=== PATIENT | female | born 1995 | race African-American/Black ===

== ENCOUNTER 2016-07-31 10:51 | Emergency (ER) | payer SELFPAY ==
[2016-07-31 10:54] VITALS: BP 132/94
[2016-07-31] MEDS ORDERED: NS 1000 ML 1,000 ML IV ONE ×2 (10:59→14:39)
[2016-07-31] MEDS ORDERED: ZOFRAN INJ 4 MG VIAL IVP ONE (10:59)
--- NOTE | 2016-07-31 10:59 | DR.GENAD ---
HPI - PCP Primary Care Physician: andreea ARAUZ Comment HPI Comment: Patient reports that she has been with nausea, vomiting, diarrhea since yesterday.Not sure how many- Denies having eaten anything strange or left over - Complaint/Symptoms Chief Complaint Doctors Comments: Vomiting/diarrhea Chief Complaint:: patient stated she has been vomiting since last night - Nurses notes reviewed Nurses Notes Review: Yes - Source History Provided: Patient - Mode of Arrival Mode of Arrival: Ambulatory - Timing Onset of Chief Complaint: 07/30/16 PMH - PMH Past Medical History: Yes Past Medical History: Asthma Past Surgical History: No - Family History History of Family Medical Conditions: Yes Family Medical History: Diabetes Mellitus, Cancer, [place], Coronary Artery Disease, Heart Failure, Sudden Cardiac , Hypertension - Social History Does patient currently use any type of tobacco product: No Have you used tobacco products in the last 12 months: No Type of Tobacco Use: None Does any household member use tobacco: Yes Alcohol Use: None Do you use any recreational Drugs:: No Lives With: Family Lives Where: Home - infectious screening In the last 2 months have you had wt loss of >10#?: NO Have you had fever, night sweats or hemotysis?: No Have you traveled outside the country in the last 6 months?: No Isolation: Standard ROS - Review of Systems Constitutional: No Symptoms Reported Eyes: No Symptoms Reported ENTM: No Symptoms Reported Respiratoy: No Symptoms Reported Cardiovascular: No Symptoms Reported Gastrointestinal/Abdominal: Diarrhea, Nausea, Vomiting Genitourinary: No Symptoms Reported Neurological: No Symptoms Reported Musculoskeletal: No Symptoms Reported Integumentary: No Symptoms Reported Hematologic/Lymphatic: No Symptoms Reported Endocrine: No Symptoms Reported Psychiatric: No Symptoms Reported All Other Systems: Reviewed and Negative PE - Vital Signs Vitals: Temperature 97.9 F Pulse Rate 129 Respiratory Rate 16 Blood Pressure 132/94 O2 Sat by Pulse Oximetry 100 - General Limitations: No Limitations General Appearance: Alert, Anxious - Head Head Exam: Normal Inspection - Eyes Eye exam: Normal Appearance, PERRL, EOMI - ENT ENT Exam: Normal Exam, Normal Oropharynx External Ear Exam: Normal External Inspection TM/Canal Exam: Bilateral Normal Nose Exam: Normal Nose Exam Mouth Exam: Normal Inspection Throat Exam: Normal Inspection - Neck Neck Exam: Normal Inspection, Full ROM - Chest Chest Inspection: Normal Inspection - Respiratory Respiratory Exam: Normal Lung Sounds Bilat Respiratory Exam: Bilateral Clear to Auscultation - Cardiovascular Cardiovascular Exam: Regular Rate, Normal Rhythm - Abdominal Exam Abdominal Exam: Normal Inspection, Normal Bowel Sounds, Soft, Tenderness Abdominal Tenderness: Diffuse - Extremities Extremities Exam: Normal Inspection - Back Back Exam: Normal Inspection, Full ROM - Neurologic Neurological Exam: Alert, Oriented X3, CN II-XII Intact - Psychiatric Psychiatric Exam: Normal Affect, Normal Mood - Skin Skin Exam: Warm, Dry, Intact, Normal Color Course - Reevaluation 1st: Improved - Education/Counseling Education/Counseling: Patient Educated On: Treatment, Diagnosis, Needs for Follow Up ROR - Labs Reviewed Laboratory Results Reviewed?: Yes Result Diagrams: 07/31/16 11:00 07/31/16 11:00 Laboratory: WBC 13.7 X10^3/uL (3.6-10.0) H 07/31/16 11:00 RBC 5.17 X10^6/uL (3.5-5.4) 07/31/16 11:00 Hgb 13.7 g/dL (12.0-16.0) 07/31/16 11:00 Hct 40.9 % (36.0-47.0) 07/31/16 11:00 MCV 79.1 fL (80.0-100.0) L 07/31/16 11:00 MCH 26.4 pg (27.0-34.0) L 07/31/16 11:00 MCHC 33.4 g/dL (33.0-35.0) 07/31/16 11:00 RDW 13.9 % (11.6-16.5) 07/31/16 11:00 Plt Count 317 X10^3/uL (150.0-450.0) 07/31/16 11:00 MPV 9.3 fL (7.4-11.0) 07/31/16 11:00 Neut % 84.5 % (42.0-75.0) H 07/31/16 11:00 Lymph % 9.9 % (21.0-51.0) L 07/31/16 11:00 Whiteside % 4.1 % (0.0-13.0) 07/31/16 11:00 Eos % 1.0 % (0.9-2.9) 07/31/16 11:00 Baso % 0.5 % (0.2-1.0) 07/31/16 11:00 Neut # 11.6 x10^3/uL (2.2-4.8) H 07/31/16 11:00 Lymph # 1.4 X10^3/uL (1.3-2.9) 07/31/16 11:00 Whiteside # 0.6 x10^3/uL (0.3-0.8) 07/31/16 11:00 Eos # 0.1 x10^3/uL (0.0-0.2) 07/31/16 11:00 Baso # 0.1 X10^3/uL (0.0-0.1) 07/31/16 11:00 Absolute Nucleated RBC 0.0 /100WBC 07/31/16 11:00 Sodium 142 mmol/L (136-145) 07/31/16 11:00 Corrected Sodium TNP 07/31/16 11:00 Potassium 3.9 mmol/L (3.5-5.1) 07/31/16 11:00 Chloride 104 mmol/L (98-107) 07/31/16 11:00 Carbon Dioxide 26.5 mmol/L (21-32) 07/31/16 11:00 BUN 15 mg/dL (7-18) 07/31/16 11:00 Creatinine 1.07 mg/dL (0.55-1.02) H 07/31/16 11:00 Est GFR (MDRD) Af Amer > 60 (>60) 07/31/16 11:00 Est GFR (MDRD) Non-Af > 60 (>60) 07/31/16 11:00 Glucose 108 mg/dL (65-99) H 07/31/16 11:00 Calcium 9.2 mg/dL (8.5-10.1) 07/31/16 11:00 Corrected Calcium TNP 07/31/16 11:00 Total Bilirubin 0.30 mg/dL (0.2-1.0) 07/31/16 11:00 AST 25 Units/L (15-37) 07/31/16 11:00 ALT 28 Units/L (12-78) 07/31/16 11:00 Alkaline Phosphatase 74 Units/L (46-116) 07/31/16 11:00 Total Protein 8.5 g/dL (6.4-8.2) H 07/31/16 11:00 Albumin 4.2 g/dL (3.4-5.0) 07/31/16 11:00 Globulin 4.3 g/dL (2.5-4.5) 07/31/16 11:00 Albumin/Globulin Ratio 1.0 Ratio (1.1-2.1) L 07/31/16 11:00 Amylase 76 Units/L (25-115) 07/31/16 11:00 Lipase 132 Units/L (73-393) 07/31/16 11:00 HCG, Qual Negative <10 mIU/mL 07/31/16 11:00 Reviewed - XRAY XRAY Interpreted by: Radiologist XRAY Findings: No obstruction - Diagnosis Discharge Problem: Gastroenteritis, acute Nausea & vomiting Qualifiers: Vomiting type: unspecified Vomiting Intractability: non-intractable Qualified Code(s): R11.2 - Nausea with vomiting, unspecified Diarrhea Qualifiers: Diarrhea type: unspecified type Qualified Code(s): R19.7 - Diarrhea, unspecified Abdominal pain Qualifiers: Abdominal location: generalized Qualified Code(s): R10.84 - Generalized abdominal pain Elevated WBCs Qualifiers: Leukocytosis type: other Qualified Code(s): D72.828 - Other elevated white blood cell count - Discharge Plan Disposition: 01 HOME, SELF-CARE Condition: Stable Prescriptions: Cefdinir 300 mg PO BID #20 cap - Follow ups/Referrals Follow ups/Referrals: NFD,None [Primary Care Provider] - 3 days - Instructions Instructions: Nausea, Adult, Diarrhea, Adult, [id number], Abdominal Pain, Adult, [id number] Additional Instructions: Patient advised to continue clear liquid diet then soft to solid. Follow up with PCP.
[2016-07-31] MEDS ORDERED: DEMEROL INJ IVP ONE (11:00)
[2016-07-31] MEDS ORDERED: NS 1000 ML 1,000 ML ONE ×2 (11:03→14:44)
[2016-07-31] MEDS ORDERED: ZOFRAN INJ 4 MG VIAL ONE (11:03)
[2016-07-31] MEDS ORDERED: DEMEROL INJ ONE (11:14)
[2016-07-31 11:23] LABS: ALANINE AMINOTRANSFERASE 28 Units/L (12-78); ALBUMIN 4.2 g/dL (3.4-5.0); ALKALINE PHOSPHATASE 74 Units/L (46-116); AMYLASE 76 Units/L (25-115); ASPARTATE AMINO TRANSFERASE 25 Units/L (15-37); BLOOD UREA NITROGEN 15 mg/dL (7-18); CALCIUM 9.2 mg/dL (8.5-10.1); CARBON DIOXIDE 26.5 mmol/L (21-32); CHLORIDE 104 mmol/L (98-107); CREATININE 1.07 mg/dL (0.55-1.02); GLUCOSE 108 mg/dL (65-99); LIPASE 132 Units/L (73-393); SODIUM 142 mmol/L (136-145); TOTAL PROTEIN 8.5 g/dL (6.4-8.2); eGFR BLACK RACES > 60 (>60); eGFR NON BLACK RACES > 60 (>60)
[2016-07-31 11:24] LABS: BASOPHILS # (AUTO) 0.1 X10^3/uL (0.0-0.1); BASOPHILS % (AUTO) 0.5 % (0.2-1.0); EOSINOPHILS # (AUTO) 0.1 x10^3/uL (0.0-0.2); HEMATOCRIT 40.9 % (36.0-47.0); HEMOGLOBIN 13.7 g/dL (12.0-16.0); LYMPHOCYTES # (AUTO) 1.4 X10^3/uL (1.3-2.9); LYMPHOCYTES % (AUTO) 9.9 % (21.0-51.0); MEAN CORPUSCULAR HEMOGLOBIN 26.4 pg (27.0-34.0); MEAN CORPUSCULAR HGB CONC 33.4 g/dL (33.0-35.0); MEAN CORPUSCULAR VOLUME 79.1 fL (80.0-100.0); MEAN PLATELET VOLUME 9.3 fL (7.4-11.0); MONOCYTES # (AUTO) 0.6 x10^3/uL (0.3-0.8); MONOCYTES % (AUTO) 4.1 % (0.0-13.0); NEUTROPHILS # (AUTO) 11.6 x10^3/uL (2.2-4.8); NEUTROPHILS % (AUTO) 84.5 % (42.0-75.0); PLATELET COUNT 317 X10^3/uL (150.0-450.0); RED BLOOD COUNT 5.17 X10^6/uL (3.5-5.4); RED CELL DISTRIBUTION WIDTH 13.9 % (11.6-16.5); WHITE BLOOD COUNT 13.7 X10^3/uL (3.6-10.0)
[2016-07-31 11:50] LABS: SERUM PREGNANCY TEST, QUAL NEGATIVE <10 mIU/mL
--- NOTE | 2016-07-31 12:51 | RAD ---
HISTORY: Abdominal pain, vomiting, diarrhea, symptoms since last night Study: Acute abdominal series Comparison: No priors Findings: The trachea is midline. The cardiac silhouette is unremarkable. The lungs are clear without focal infiltrate or effusion. The bony thorax is unremarkable. Flat plate and upright evaluation of the abdomen demonstrates a 9 centimeter rectal fecal impaction. No bowel obstruction or perforation is seen. There is no evidence of free intraperitoneal air or fl uid. No pathological soft tissue mass or calcification can be observed. The bony structures are gr ossly intact. IMPRESSION: 1. No acute cardiopulmonary disease. 2. 9 centimeter rectal fecal impaction. No evidence of bowel obstruction or perforation is seen. Reported By:
[2016-07-31] MEDS ORDERED: PHENERGAN INJ 25 MG IVP ONE (14:39)
[2016-07-31] MEDS ORDERED: PHENERGAN INJ 25 MG ONE (14:49)
== END 2016-07-31 15:55 | disposition home or self-care (01) ==
LOC: ER 10:51
DX: K52.89 Other specified noninfective gastroenteritis and colitis (principal); R11.2 Nausea with vomiting, unspecified; R19.7 Diarrhea, unspecified; R10.84 Generalized abdominal pain; D72.828 Other elevated white blood cell count
CPT/HCPCS: 36415; 74022; 80053; 82150; 83690; 84703; 85025; 96365; 96367; 96374; 96375; 99283; A4222; J2175; J2405; J2550

== ENCOUNTER 2016-10-25 12:51 | Emergency (ER) | payer SELFPAY ==
[2016-10-25 12:55] VITALS: BP 126/87
--- NOTE | 2016-10-25 15:55 | DR.GENAD ---
HPI - PCP Primary Care Physician: nfd - HPI Comment HPI Comment: WAS SEEN AND TREATED IN [facility] IN [place]. STILL NOT BETTER. GETTING WORSE. - Complaint/Symptoms Chief Complaint Doctors Comments: NAUSEA, VOMITING, BODY ACHES AND HEADACHE FOR 5 TO 6 DAYS. Chief Complaint:: pt states she was seen in [facility] two days ago for vomiting, body aches, fever, headache. Pt states she is still sick - Nurses notes reviewed Nurses Notes Review: Yes - Source History Provided: Patient - Mode of Arrival Mode of Arrival: Ambulatory - Timing Onset of Chief Complaint: 10/20/16 Came on: Suddenly - Duration Duration: Constant Duration: Days - Severity Severity: Moderate PMH - PMH Past Medical History: Yes Past Medical History: Anemia, Asthma Past Surgical History: No - Family History History of Family Medical Conditions: Yes Family Medical History: Diabetes Mellitus, Cancer, [place], Coronary Artery Disease, Heart Failure, Sudden Cardiac , Hypertension - Social History Does patient currently use any type of tobacco product: Yes Have you used tobacco products in the last 12 months: Yes Type of Tobacco Use: Cigarettes Does any household member use tobacco: No Alcohol Use: None Do you use any recreational Drugs:: No Lives With: Spouse Lives Where: Home - infectious screening In the last 2 months have you had wt loss of >10#?: NO Have you had fever, night sweats or hemotysis?: No Have you traveled outside the country in the last 6 months?: No Isolation: Standard ROS - Review of Systems Constitutional: Weakness, Fatigue. negative: Chills, Diaphoresis, Fever Eyes: No Symptoms Reported. negative: Eye Pain, Discharge ENTM: No Symptoms Reported, Nose Congestion. negative: Ear Pain, Nose Discharge , Throat Pain Respiratoy: Non-Productive Cough. negative: Productive Cough, Short of Breath, Wheezing, Hemoptysis Cardiovascular: No Symptoms Reported. negative: Chest Pain Gastrointestinal/Abdominal: Abdominal Pain, Nausea, Vomiting Genitourinary: No Symptoms Reported. negative: Dysuria, Frequency, Hematuria Neurological: Headache, Weakness, Dizziness Musculoskeletal: Muscle Pain Integumentary: No Symptoms Reported Hematologic/Lymphatic: No Symptoms Reported Endocrine: No Symptoms Reported All Other Systems: Reviewed and Negative PE - Vital Signs Vitals: Temperature 98.3 F Pulse Rate 96 Respiratory Rate 18 Blood Pressure 126/87 O2 Sat by Pulse Oximetry 99 - General Limitations: No Limitations General Appearance: Alert - Head Head Exam: Normal Inspection - Eyes Eye exam: Normal Appearance, PERRL, EOMI. negative: Scleral Icterus, Conjunctival Injection - ENT ENT Exam: Normal External Ear Exam External Ear Exam: Normal External Inspection TM/Canal Exam: Bilateral Bulging Nose Exam: Normal Nose Exam Mouth Exam: Normal Inspection Throat Exam: Normal Inspection - Neck Neck Exam: Trachea Midline - Chest Chest Inspection: Symmetric Chest Wall Rise - Respiratory Respiratory Exam: Normal Lung Sounds Bilat Respiratory Exam: Bilateral Clear to Auscultation - Cardiovascular Cardiovascular Exam: Regular Rate, Normal Rhythm, Normal Heart Sounds - Abdominal Exam Abdominal Exam: Normal Bowel Sounds, Soft, Tenderness Abdominal Tenderness: Diffuse, Moderate - Extremities Extremities Exam: Normal Inspection - Back Back Exam: Normal Inspection - Neurologic Neurological Exam: Alert, Oriented X3 - Psychiatric Psychiatric Exam: Anxious - Skin Skin Exam: Normal Color MDM - Differential Diagnosis Differential Diagnosis: NAUSEA/VOMITING, BOWEL OBST., SINUSITIS. SINUS HEADACHE Course - Treatment Treatment: SEE REPORT. - Education/Counseling Education/Counseling: Patient, Education Educated On: Diagnosis, Needs for Follow Up ROR - Labs Reviewed Laboratory Results Reviewed?: Yes Result Diagrams: 10/25/16 16:00 10/25/16 16:00 Laboratory: WBC 4.3 X10^3/uL (3.6-10.0) 10/25/16 16:00 RBC 4.41 X10^6/uL (3.5-5.4) 10/25/16 16:00 Hgb 11.7 g/dL (12.0-16.0) L 10/25/16 16:00 Hct 34.4 % (36.0-47.0) L 10/25/16 16:00 MCV 77.9 fL (80.0-100.0) L 10/25/16 16:00 MCH 26.6 pg (27.0-34.0) L 10/25/16 16:00 MCHC 34.2 g/dL (33.0-35.0) 10/25/16 16:00 RDW 14.2 % (11.6-16.5) 10/25/16 16:00 Plt Count 209 X10^3/uL (150.0-450.0) 10/25/16 16:00 MPV 8.8 fL (7.4-11.0) 10/25/16 16:00 Neut % 58.7 % (42.0-75.0) 10/25/16 16:00 Lymph % 29.2 % (21.0-51.0) 10/25/16 16:00 Payne % 11.2 % (0.0-13.0) 10/25/16 16:00 Eos % 0.1 % (0.9-2.9) L 10/25/16 16:00 Baso % 0.8 % (0.2-1.0) 10/25/16 16:00 Neut # 2.5 x10^3/uL (2.2-4.8) 10/25/16 16:00 Lymph # 1.2 X10^3/uL (1.3-2.9) L 10/25/16 16:00 Payne # 0.5 x10^3/uL (0.3-0.8) 10/25/16 16:00 Eos # 0.0 x10^3/uL (0.0-0.2) 10/25/16 16:00 Baso # 0.0 X10^3/uL (0.0-0.1) 10/25/16 16:00 Absolute Nucleated RBC 0.0 /100WBC 10/25/16 16:00 Sodium 137 mmol/L (136-145) 10/25/16 16:00 Corrected Sodium TNP 10/25/16 16:00 Potassium 3.6 mmol/L (3.5-5.1) 10/25/16 16:00 Chloride 103 mmol/L (98-107) 10/25/16 16:00 Carbon Dioxide 24.3 mmol/L (21-32) 10/25/16 16:00 BUN 9 mg/dL (7-18) 10/25/16 16:00 Creatinine 0.95 mg/dL (0.55-1.02) 10/25/16 16:00 Est GFR (MDRD) Af Amer > 60 (>60) 10/25/16 16:00 Est GFR (MDRD) Non-Af > 60 (>60) 10/25/16 16:00 Glucose 81 mg/dL (65-99) 10/25/16 16:00 Calcium 8.5 mg/dL (8.5-10.1) 10/25/16 16:00 Corrected Calcium 9.1 mg/dL (8.5-10.1) 10/25/16 16:00 Total Bilirubin 0.20 mg/dL (0.2-1.0) 10/25/16 16:00 AST 26 Units/L (15-37) 10/25/16 16:00 ALT 34 Units/L (12-78) 10/25/16 16:00 Alkaline Phosphatase 53 Units/L (46-116) 10/25/16 16:00 Total Protein 7.2 g/dL (6.4-8.2) 10/25/16 16:00 Albumin 3.3 g/dL (3.4-5.0) L 10/25/16 16:00 Globulin 3.9 g/dL (2.5-4.5) 10/25/16 16:00 Albumin/Globulin Ratio 0.8 Ratio (1.1-2.1) L 10/25/16 16:00 HCG, Qual Negative <10 mIU/mL 10/25/16 16:00 Specimen Type Clean catch urine 10/25/16 17:53 Urine Color Yellow (YELLOW) 10/25/16 17:53 Urine Appearance Clear (CLEAR) 10/25/16 17:53 Urine pH 6.5 (5.0 - 8.0) 10/25/16 17:53 Ur Specific Rough And Ready 1.010 (1.000-1.030) 10/25/16 17:53 Urine Protein 1+ (NEGATIVE) 10/25/16 17:53 Urine Glucose (UA) Negative (NEGATIVE) 10/25/16 17:53 Urine Ketones 3+ (NEGATIVE) 10/25/16 17:53 Urine Occult Blood Negative (NEGATIVE) 10/25/16 17:53 Urine Nitrite Negative (NEGATIVE) 10/25/16 17:53 Urine Bilirubin Negative (NEGATIVE) 10/25/16 17:53 Urine Urobilinogen Normal (NORMAL) 10/25/16 17:53 Ur Leukocyte Esterase Negative (NEGATIVE) 10/25/16 17:53 Urine RBC 0-3 /HPF (NEGATIVE) 10/25/16 17:53 Urine WBC 0-3 /HPF (NEGATIVE) 10/25/16 17:53 Ur Squamous Epith Cells Few /HPF (NEGATIVE) 10/25/16 17:53 Urine Bacteria Negative /HPF (NEGATIVE) 10/25/16 17:53 Urine Mucus Few /HPF (NEGATIVE) 10/25/16 17:53 Urine Trichomonas Few /HPF (NEGATIVE) 10/25/16 17:53 Ur Culture Indicated? No/not indicated 10/25/16 17:53 - XRAY XRAY Interpreted by: Radiologist XRAY Findings: REPORT DISCUSS WITH PATIENT. - Diagnosis Discharge Problem: Sinus headache Nausea & vomiting Qualifiers: Vomiting type: bilious vomiting Qualified Code(s): R11.14 - Bilious vomiting Sinusitis Qualifiers: Sinusitis location: unspecified location Chronicity: acute Recurrence: not specified as recurrent Qualified Code(s): J01.90 - Acute sinusitis, unspecified - Discharge Plan Disposition: HOME, SELF-CARE Condition: Stable Prescriptions: Amoxicillin [Amoxil 875 mg] 875 mg PO BID #20 tab Hiqarmgzhm-Izfdzkiayanep-Ibvja [Fioricet 50-300-40 mg] 1 cap PO Q8H PRN #15 cap PRN Reason: Migraine Headache Ondansetron HCl [Zofran Tab 4 mg] 4 mg PO Q8H PRN #12 tab PRN Reason: Nausea/Vomiting - Follow ups/Referrals Follow ups/Referrals: NFD,None [Primary Care Provider] - 3 days - Instructions Instructions: Sinus Headache, [id number], Sinus Headache, Nausea and Vomiting , Adult, Wuqh-wn-Zzzw Additional Instructions: RETURN TO ED IF WORSE.
[2016-10-25] MEDS ORDERED: ZOFRAN INJ 4 MG VIAL IVP ONE (15:56)
[2016-10-25] MEDS ORDERED: NS 1000 ML 1,000 ML IV ONE (15:56)
[2016-10-25] MEDS ORDERED: MORPHINE SULFATE INJ 4 MG IVP ONE (15:57)
[2016-10-25] MEDS ORDERED: NS 1000 ML 1,000 ML ONE (16:10)
[2016-10-25] MEDS ORDERED: ZOFRAN INJ 4 MG VIAL ONE (16:11)
[2016-10-25] MEDS ORDERED: MORPHINE SULFATE INJ 4 MG ONE (16:11)
[2016-10-25 16:16] LABS: BASOPHILS % (AUTO) 0.8 % (0.2-1.0); EOSINOPHILS % (AUTO) 0.1 % (0.9-2.9); HEMATOCRIT 34.4 % (36.0-47.0); HEMOGLOBIN 11.7 g/dL (12.0-16.0); LYMPHOCYTES # (AUTO) 1.2 X10^3/uL (1.3-2.9); LYMPHOCYTES % (AUTO) 29.2 % (21.0-51.0); MEAN CORPUSCULAR HEMOGLOBIN 26.6 pg (27.0-34.0); MEAN CORPUSCULAR HGB CONC 34.2 g/dL (33.0-35.0); MEAN CORPUSCULAR VOLUME 77.9 fL (80.0-100.0); MEAN PLATELET VOLUME 8.8 fL (7.4-11.0); MONOCYTES # (AUTO) 0.5 x10^3/uL (0.3-0.8); MONOCYTES % (AUTO) 11.2 % (0.0-13.0); NEUTROPHILS # (AUTO) 2.5 x10^3/uL (2.2-4.8); NEUTROPHILS % (AUTO) 58.7 % (42.0-75.0); PLATELET COUNT 209 X10^3/uL (150.0-450.0); RED BLOOD COUNT 4.41 X10^6/uL (3.5-5.4); RED CELL DISTRIBUTION WIDTH 14.2 % (11.6-16.5); WHITE BLOOD COUNT 4.3 X10^3/uL (3.6-10.0)
[2016-10-25 16:27] LABS: ALANINE AMINOTRANSFERASE 34 Units/L (12-78); ALBUMIN 3.3 g/dL (3.4-5.0); ALKALINE PHOSPHATASE 53 Units/L (46-116); ASPARTATE AMINO TRANSFERASE 26 Units/L (15-37); BLOOD UREA NITROGEN 9 mg/dL (7-18); CALCIUM 8.5 mg/dL (8.5-10.1); CARBON DIOXIDE 24.3 mmol/L (21-32); CHLORIDE 103 mmol/L (98-107); COR CA(FOR HYPOALB) 9.1 mg/dL (8.5-10.1); CREATININE 0.95 mg/dL (0.55-1.02); GLUCOSE 81 mg/dL (65-99); SODIUM 137 mmol/L (136-145); TOTAL PROTEIN 7.2 g/dL (6.4-8.2); eGFR BLACK RACES > 60 (>60); eGFR NON BLACK RACES > 60 (>60)
[2016-10-25 16:30] LABS: SERUM PREGNANCY TEST, QUAL NEGATIVE <10 mIU/mL
--- NOTE | 2016-10-25 17:22 | RAD ---
HISTORY: Abdominal pain, fever, headache, vomiting, malaise Study: Acute abdominal series Comparison: July 31, 2016 Findings: The trachea is midline. The cardiac silhouette is unremarkable. The lungs are clear without focal mass or consolidation. There is no effusion or pneumothorax. The bony thorax is grossly unremarkab le. Flat plate and upright evaluation of the abdomen demonstrates a nonspecific bowel gas pattern withou t pneumoperitoneum. There are a few mildly air distended loops of small bowel which could be seen w ith gastroenteritis. No pathological soft tissue mass or calcification can be observed. The bony st ructures are grossly intact. IMPRESSION: 1. No acute cardiopulmonary disease. 2. Nonspecific bowel gas pattern which could be seen with gastroenteritis. Reported By:
[2016-10-25 18:09] LABS: BILIRUBIN,URINE NEGATIVE (NEGATIVE); BLOOD/HEMOGLOBIN,URINE NEGATIVE (NEGATIVE); GLUCOSE, URINE NEGATIVE (NEGATIVE); KETONES,URINE 3+ (NEGATIVE); LEUKOCYTE ESTERASE ,URINE NEGATIVE (NEGATIVE); NITRITES,URINE NEGATIVE (NEGATIVE); PH,URINE 6.5 (5.0 - 8.0); PROTEIN,URINE 1+ (NEGATIVE); UROBILINOGEN,URINE NORMAL (NORMAL)
[2016-10-25 18:20] LABS: APPEARANCE,URINE CLEAR (CLEAR); BACTERIA,URINE NEGATIVE /HPF (NEGATIVE); COLOR,URINE YELLOW (YELLOW); MUCUS,URINE FEW /HPF (NEGATIVE); RBC,URINE 0-3 /HPF (NEGATIVE); SQUAMOUS EPITHELIAL CELL,UR FEW /HPF (NEGATIVE); TRICHOMONAS,URINE FEW /HPF (NEGATIVE)
== END 2016-10-25 18:05 | disposition home or self-care (01) ==
LOC: ER 13:15
DX: J01.80 Other acute sinusitis (principal); R51 Headache; R11.14 Bilious vomiting
CPT/HCPCS: 36415; 74022; 80053; 81001; 84703; 85025; 96365; 96374; 96375; 99283; A4222; J2270; J2405

== ENCOUNTER 2016-10-27 19:48 | Emergency (ER) | payer SELFPAY ==
--- NOTE | 2016-10-27 20:23 | DR.GENAD ---
HPI - HPI Comment HPI Comment: HISTORY BELOW. - Complaint/Symptoms Chief Complaint Doctors Comments: HEADACHE AND BACK PAIN FOR SEVERAL DAYS. EVALUATED IN ED BUT SYMTOMS PERSISTS. NO FEVER. HEADACHE SEVERE. Chief Complaint:: HEADACHE AND BACK PAIN Self Treatment fo Chief Complaint: OTC PAIN MEDS - Nurses notes reviewed Nurses Notes Review: Yes - Source History Provided: Patient - Mode of Arrival Mode of Arrival: Wheelchair - Timing Onset of Chief Complaint: 10/20/16 Came on: Suddenly - Duration Duration: Constant Duration: Days - Severity Severity: Moderate PMH - PMH Past Medical History: Yes Past Medical History: Anemia, Asthma Past Surgical History: No - Family History History of Family Medical Conditions: Yes Family Medical History: Diabetes Mellitus, Cancer, [place], Coronary Artery Disease, Heart Failure, Sudden Cardiac , Hypertension - Social History Does patient currently use any type of tobacco product: Yes Have you used tobacco products in the last 12 months: Yes Type of Tobacco Use: Cigars Does any household member use tobacco: Yes Alcohol Use: None Do you use any recreational Drugs:: No Lives With: Family Lives Where: Home - infectious screening In the last 2 months have you had wt loss of >10#?: NO Have you had fever, night sweats or hemotysis?: No Have you traveled outside the country in the last 6 months?: No Isolation: Standard ROS - Review of Systems Constitutional: Weakness, Fatigue. negative: Chills, Diaphoresis, Fever, Loss of Appetite Eyes: No Symptoms Reported. negative: Eye Pain, Discharge ENTM: Nose Congestion. negative: Ear Pain, Nose Discharge, Throat Pain Respiratoy: Non-Productive Cough. negative: Productive Cough, Short of Breath, Wheezing, Hemoptysis Cardiovascular: No Symptoms Reported Gastrointestinal/Abdominal: Abdominal Pain, Nausea, Vomiting Genitourinary: No Symptoms Reported. negative: Dysuria, Frequency, Hematuria Neurological: Headache, Weakness, Dizziness Musculoskeletal: Muscle Pain Integumentary: No Symptoms Reported Hematologic/Lymphatic: No Symptoms Reported Endocrine: No Symptoms Reported All Other Systems: Reviewed and Negative PE - Vital Signs Vitals: Temperature 99.4 F Pulse Rate [Left Brachial] 72 Pulse Rate 94 Respiratory Rate 17 Blood Pressure [Left Arm] 123/72 Blood Pressure 124/78 O2 Sat by Pulse Oximetry 99 - General Limitations: No Limitations General Appearance: Alert - Head Head Exam: Normal Inspection - Eyes Eye exam: Normal Appearance - ENT ENT Exam: Normal External Ear Exam External Ear Exam: Normal External Inspection TM/Canal Exam: Bilateral Normal Nose Exam: Normal Nose Exam Mouth Exam: Normal Inspection Throat Exam: Normal Inspection - Neck Neck Exam: Normal Inspection - Chest Chest Inspection: Symmetric Chest Wall Rise - Respiratory Respiratory Exam: Normal Lung Sounds Bilat Respiratory Exam: Bilateral Clear to Auscultation - Cardiovascular Cardiovascular Exam: Regular Rate, Normal Rhythm, Normal Heart Sounds - Abdominal Exam Abdominal Exam: Normal Bowel Sounds, Soft, Tenderness - Extremities Extremities Exam: Normal Inspection - Back Back Exam: Normal Inspection - Neurologic Neurological Exam: Alert, Oriented X3, CN II-XII Intact, Reflexes Normal. negative: Motor Sensory Deficit - Psychiatric Psychiatric Exam: Normal Affect, Normal Mood - Skin Skin Exam: Normal Color MDM - Additional Information Additional Information Obtained From: Family - Differential Diagnosis Differential Diagnosis: ABDOMINAL PAIN, BACK APIN, HEADACHE, SINUSIIITIS, SINUS HEADACHE. Course - Treatment Treatment: MED FOR HEADACHE IN ED. IMPROVING. - Education/Counseling Education/Counseling: Patient, Family, Education Educated On: Treatment, Diagnosis, Needs for Follow Up ROR - Labs Reviewed Laboratory: HCG, Qual Negative <10 mIU/mL 10/27/16 20:50 - XRAY XRAY Interpreted by: Radiologist XRAY Findings: REPORT DISCUSS WITH PATIENT. - Diagnosis Discharge Problem: Sinus headache Back pain Qualifiers: Back pain location: low back pain Chronicity: acute Back pain laterality: bilateral Sciatica presence: without sciatica Qualified Code(s): M54.5 - Low back pain Abdominal pain Qualifiers: Abdominal location: generalized Qualified Code(s): R10.84 - Generalized abdominal pain Sinusitis Qualifiers: Sinusitis location: unspecified location Chronicity: acute Recurrence: not specified as recurrent Qualified Code(s): J01.90 - Acute sinusitis, unspecified - Discharge Plan Disposition: HOME, SELF-CARE Condition: Stable - Follow ups/Referrals Follow ups/Referrals: KELLY,Etelvina [Primary Care Provider] - 3 days RADHA JARAMILLO [STAFF PHYSICIAN] - 3 days - Instructions Instructions: Abdominal Pain, Adult, [id number]-[id number], General Headache Without Cause, Wkxn-ic-Mtyf, Back Pain, Adult, Emmb-wi-[id number] Additional Instructions: RETURN TO ED IF WORSE. CONTINUE WITH PREVIOUS PRESCRIPTION YOU HAVE AT HOME.
[2016-10-27] MEDS ORDERED: PHENERGAN INJ 25 MG ONE (20:47)
[2016-10-27] MEDS ORDERED: DEMEROL INJ ONE (20:47)
[2016-10-27] MEDS ORDERED: DEMEROL INJ IM ONE (20:50)
[2016-10-27] MEDS ORDERED: PHENERGAN INJ 25 MG IM ONE (20:52)
[2016-10-27 21:21] LABS: SERUM PREGNANCY TEST, QUAL NEGATIVE <10 mIU/mL
--- NOTE | 2016-10-27 22:01 | CT ---
STUDY: CT HEAD WITHOUT CONTRAST HISTORY: Headache, dizziness, nausea, and vomiting. TECHNIQUE: Multiple axial images of the head were obtained from the skull base to the vertex withou t administration of IV contrast. Automated exposure control (AEC) was utilized to adjust the MA and /or kV. COMPARISON: None. FINDINGS: The sulci, cisterns and ventricles are age appropriate. There is no evidence of acute ter ritorial infarction, hemorrhage, mass, mass effect, or midline shift. There are no abnormal intra-ax ial or extra-axial fluid collections. There is no evidence of acute osseous abnormality or significant soft tissue swelling. There is muco ishmael thickening and partial opacification of ethmoid air cells. IMPRESSION: 1. No evidence of acute intracranial abnormality. Reported By:
[2016-10-27 22:29] VITALS: BP 123/72
== END 2016-10-27 22:19 | disposition home or self-care (01) ==
LOC: ER 19:48
DX: R51 Headache (principal); M54.5 Low back pain; R10.84 Generalized abdominal pain; J01.80 Other acute sinusitis
CPT/HCPCS: 36415; 70450; 84703; 96372; 99282; J2175; J2550

== ENCOUNTER 2017-04-18 17:58 | Emergency (ER) | payer SELFPAY ==
[2017-04-18 18:07] VITALS: BMI 30.9
--- NOTE | 2017-04-18 18:22 | DR.GENAD ---
HPI - PCP Primary Care Physician: NFD - Complaint/Symptoms Chief Complaint Doctors Comments: Patient admits to a headache for a week. Admits to sharp frontal and maxillary pain associated with vomiting. She states that she has been on amoxicillin for one week for her teeth. She denies taking any medication for her headache. Chief Complaint:: PATIENT STATED THAT SHE HAS HAD A HEADACHE WITH VOMITING TODAY AND FEELING FAINT. IT HAS BEEN GOING ON FOR 3-4 DAYS BUT HAS WORSENED - Source History Provided: Patient - Timing Onset of Chief Complaint: 04/14/17 PMH - PMH Past Medical History: Yes Past Medical History: Anemia, Asthma Past Surgical History: No - Family History History of Family Medical Conditions: Yes Family Medical History: Diabetes Mellitus, Cancer, [place], Coronary Artery Disease, Heart Failure, Sudden Cardiac , Hypertension - Social History Does patient currently use any type of tobacco product: No Have you used tobacco products in the last 12 months: No Type of Tobacco Use: None Does any household member use tobacco: No Alcohol Use: None Do you use any recreational Drugs:: No Lives With: Family Lives Where: Home - infectious screening In the last 2 months have you had wt loss of >10#?: NO Have you had fever, night sweats or hemotysis?: No Have you traveled outside the country in the last 6 months?: No Isolation: Standard ROS - Review of Systems Eyes: No Symptoms Reported ENTM: No Symptoms Reported, Hearing Loss Respiratoy: No Symptoms Reported Cardiovascular: No Symptoms Reported Gastrointestinal/Abdominal: No Symptoms Reported Genitourinary: No Symptoms Reported Neurological: No Symptoms Reported Musculoskeletal: No Symptoms Reported Integumentary: No Symptoms Reported Hematologic/Lymphatic: No Symptoms Reported Endocrine: No Symptoms Reported Psychiatric: No Symptoms Reported All Other Systems: Reviewed and Negative PE - Vital Signs Vitals: Temperature 97.4 F Pulse Rate 106 Respiratory Rate 20 Blood Pressure [Left Arm] 123/72 Blood Pressure 151/92 O2 Sat by Pulse Oximetry 96 - General General Appearance: Alert, In No Apparent Distress - Head Head Exam: Normal Inspection, Atraumatic - Eyes Eye exam: Normal Appearance, PERRL, EOMI - ENT ENT Exam: Normal Exam External Ear Exam: Normal External Inspection TM/Canal Exam: Bilateral Normal Nose Exam: Normal Nose Exam, Sinus Tenderness Mouth Exam: Normal Inspection Throat Exam: Normal Inspection - Neck Neck Exam: Normal Inspection - Chest Chest Inspection: Normal Inspection - Respiratory Respiratory Exam: Normal Lung Sounds Bilat Respiratory Exam: Bilateral Clear to Auscultation - Cardiovascular Cardiovascular Exam: Regular Rate, Normal Rhythm - Abdominal Exam Abdominal Exam: Normal Inspection, Normal Bowel Sounds Abdominal Tenderness: negative: RUQ, RLQ, LUQ, LLQ, Epigastrium, Suprapubic, Diffuse, Mild, Moderate, Severe, Other - Extremities Extremities Exam: Normal Inspection, Full ROM - Back Back Exam: Normal Inspection, Full ROM, Tenderness - Neurologic Neurological Exam: Alert, Oriented X3, CN II-XII Intact - Psychiatric Psychiatric Exam: Normal Affect, Normal Mood - Skin Skin Exam: Warm, Dry, Intact Course - Reevaluation 1st: Improved ROR - Labs Reviewed Laboratory: HCG, Qual Negative <10 mIU/mL 04/18/17 18:47 - XRAY XRAY Interpreted by: Radiologist (Ct Sinus: There is mild patchy mucosal thickening in the bilateral maxillary and ethmoid sinuses without air fluid levels. The nasal spetum is midline. The left ostiomeatal unit appears patent. There is mild mucosal thickening at the right ostiomeatal unit. The left and right frontal recesses are unremarkable in their appearance. Visualized portions of the posterior fossa and intracranial structures are unremarkable as well. Impression: Mild patchy maxillary and ethmoid sinus mucosal thickening without air fluid levels.) - Diagnosis Discharge Problem: Maxillary sinusitis, acute Qualifiers: Recurrence: not specified as recurrent Qualified Code(s): J01.00 - Acute maxillary sinusitis, unspecified Acute ethmoidal sinusitis Qualifiers: Recurrence: not specified as recurrent Qualified Code(s): J01.20 - Acute ethmoidal sinusitis, unspecified - Discharge Plan Condition: Stable - Follow ups/Referrals Follow ups/Referrals: NFD,None [Primary Care Provider] - 3 days - Instructions
[2017-04-18] MEDS ORDERED: TORADOL 60 MG VIAL IM ONE (18:24)
[2017-04-18] MEDS ORDERED: TORADOL 60 MG VIAL ONE (18:29)
[2017-04-18 19:09] LABS: SERUM PREGNANCY TEST, QUAL NEGATIVE <10 mIU/mL
--- NOTE | 2017-04-18 20:24 | CT ---
HISTORY: Headache, vomiting Study: CT paranasal sinuses without contrast Comparison: None Technique: Multiple axial images of the paranasal sinuses were obtained without the administration of IV contrast. Coronal and sagittal reformats were performed and reviewed. Dose reduction techniques including Automated Exposure Control (AEC) and adjustment of mA and kV were utilized. Findings: There is mild patchy mucosal thickening in the bilateral maxillary and ethmoid sinuses without air-fl uid levels. The nasal septum is midline. The left ostiomeatal unit appears patent. There is mild mu cosal thickening at the right ostiomeatal unit. The left and right frontal recesses are unremarkable in their appearance. Visualized portions of the posterior fossa and intracranial structures are unr emarkable as well. IMPRESSION: 1. Mild patchy maxillary and ethmoid sinus mucosal thickening without air-fluid levels. Reported By:
[2017-04-18 21:02] VITALS: BP 142/82
== END 2017-04-18 21:02 | disposition home or self-care (01) ==
LOC: ER 17:58
DX: J01.80 Other acute sinusitis (principal)
CPT/HCPCS: 36415; 70486; 84703; 96372; 99282; 99283; J1885

== ENCOUNTER 2017-09-25 15:43 | Emergency (ER) | payer SELFPAY ==
[2017-09-25 15:53] VITALS: BP 137/97; BMI 30.7
--- NOTE | 2017-09-25 16:20 | DR.GENAD ---
HPI - PCP Primary Care Physician: nfd - HPI Comment HPI Comment: NO FEVER OR DYSURIA. ONE PARA ZERO. NO VAGINAL BLEEDING. - Complaint/Symptoms Chief Complaint Doctors Comments: 6 WEEKS AND HAVING LOWER ABDOMINAL PAIN AND NAUSEA. VOMITED TODAY. Chief Complaint:: Pt c/o 2-3week hx of nausea and vomiting associated with pain into right rib area that started this morning that is constant and feels like pressure rated 10/10. Pain is exacerbated by taking a deep breath. Pt does state that her period is about 2.5 weeks late. Pt is unsure is she is . Self Treatment fo Chief Complaint: took pepto bismol with no relief - Nurses notes reviewed Nurses Notes Review: Yes - Source History Provided: Patient - Mode of Arrival Mode of Arrival: Ambulatory - Timing Onset of Chief Complaint: 09/25/17 Came on: Suddenly - Duration Duration: Constant Duration: Days - Severity Severity: Moderate PMH - PMH Past Medical History: Yes Past Medical History: Asthma Past Surgical History: No - Family History History of Family Medical Conditions: Yes Family Medical History: Diabetes Mellitus, Hypertension Family Medical History Comment: mom - brain aneurysm - Social History Does patient currently use any type of tobacco product: No Have you used tobacco products in the last 12 months: No Type of Tobacco Use: None Does any household member use tobacco: No Alcohol Use: None Do you use any recreational Drugs:: No Lives With: Alone Lives Where: Home - infectious screening In the last 2 months have you had wt loss of >10#?: NO Have you had fever, night sweats or hemotysis?: No Have you traveled outside the country in the last 6 months?: No Isolation: Standard ROS - Review of Systems Constitutional: Weakness, Fatigue. negative: Chills, Fever Eyes: No Symptoms Reported ENTM: No Symptoms Reported Respiratoy: No Symptoms Reported Cardiovascular: No Symptoms Reported Gastrointestinal/Abdominal: Abdominal Pain, Nausea, Vomiting Genitourinary: Frequency Neurological: Weakness, Dizziness. negative: Headache Musculoskeletal: No Symptoms Reported Integumentary: No Symptoms Reported Hematologic/Lymphatic: No Symptoms Reported Endocrine: No Symptoms Reported All Other Systems: Reviewed and Negative PE - Vital Signs Vitals: Temperature 97.7 F Pulse Rate 97 Respiratory Rate 20 Blood Pressure [Left Arm] 142/82 Blood Pressure 137/97 O2 Sat by Pulse Oximetry 100 - General Limitations: No Limitations General Appearance: Alert - Head Head Exam: Normal Inspection - Eyes Eye exam: Normal Appearance - ENT ENT Exam: Normal External Ear Exam External Ear Exam: Normal External Inspection TM/Canal Exam: Bilateral Normal Nose Exam: Normal Nose Exam Mouth Exam: Normal Inspection Throat Exam: Normal Inspection - Neck Neck Exam: Trachea Midline - Chest Chest Inspection: Symmetric Chest Wall Rise - Respiratory Respiratory Exam: Normal Lung Sounds Bilat Respiratory Exam: Bilateral Clear to Auscultation - Cardiovascular Cardiovascular Exam: Regular Rate, Normal Rhythm, Normal Heart Sounds - Abdominal Exam Abdominal Exam: Normal Bowel Sounds, Soft, Tenderness Abdominal Tenderness: RLQ, LLQ, Suprapubic, Moderate - Extremities Extremities Exam: Normal Inspection - Back Back Exam: Normal Inspection - Neurologic Neurological Exam: Alert, Oriented X3 - Psychiatric Psychiatric Exam: Anxious - Skin Skin Exam: Normal Color MDM - Additional Information Additional Information Obtained From: Family - Differential Diagnosis Differential Diagnosis: , ABDOMINAL PAIN IN , UTI Course - Treatment Treatment: SEE ORDERS. - Education/Counseling Education/Counseling: Patient, Family, Education Educated On: Diagnosis, Needs for Follow Up ROR - Labs Reviewed Laboratory Results Reviewed?: Yes Result Diagrams: 09/25/17 16:19 09/25/17 16:19 Laboratory: WBC 10.5 X10^3/uL (3.6-10.0) H 09/25/17 16:19 RBC 4.82 X10^6/uL (3.5-5.4) 09/25/17 16:19 Hgb 12.9 g/dL (12.0-16.0) 09/25/17 16:19 Hct 37.6 % (36.0-47.0) 09/25/17 16:19 MCV 78.0 fL (80.0-100.0) L 09/25/17 16:19 MCH 26.7 pg (27.0-34.0) L 09/25/17 16:19 MCHC 34.2 g/dL (33.0-35.0) 09/25/17 16:19 RDW 14.5 % (11.6-16.5) 09/25/17 16:19 Plt Count 359 X10^3/uL (150.0-450.0) 09/25/17 16:19 MPV 8.0 fL (7.4-11.0) 09/25/17 16:19 Neut % (Auto) 54.0 % (42.0-75.0) 09/25/17 16:19 Lymph % (Auto) 34.0 % (21.0-51.0) 09/25/17 16:19 [place] % (Auto) 10.3 % (0.0-13.0) 09/25/17 16:19 Eos % (Auto) 1.1 % (0.9-2.9) 09/25/17 16:19 Baso % (Auto) 0.6 % (0.2-1.0) 09/25/17 16:19 Neut # (Auto) 5.7 x10^3/uL (2.2-4.8) H 09/25/17 16:19 Lymph # (Auto) 3.6 X10^3/uL (1.3-2.9) H 09/25/17 16:19 [place] # (Auto) 1.1 x10^3/uL (0.3-0.8) H 09/25/17 16:19 Eos # (Auto) 0.1 x10^3/uL (0.0-0.2) 09/25/17 16:19 Baso # (Auto) 0.1 X10^3/uL (0.0-0.1) 09/25/17 16:19 Absolute Nucleated RBC 0.0 /100WBC 09/25/17 16:19 Sodium 137 mmol/L (136-145) 09/25/17 16:19 Corrected Sodium TNP 09/25/17 16:19 Potassium 4.1 mmol/L (3.5-5.1) 09/25/17 16:19 Chloride 100 mmol/L (98-107) 09/25/17 16:19 Carbon Dioxide 30.1 mmol/L (21-32) 09/25/17 16:19 BUN 13 mg/dL (7-18) 09/25/17 16:19 Creatinine 0.86 mg/dL (0.55-1.02) 09/25/17 16:19 Est GFR (MDRD) Af Amer > 60 (>60) 09/25/17 16:19 Est GFR (MDRD) Non-Af > 60 (>60) 09/25/17 16:19 Glucose 92 mg/dL (65-99) 09/25/17 16:19 Calcium 9.3 mg/dL (8.5-10.1) 09/25/17 16:19 Corrected Calcium TNP 09/25/17 16:19 Total Bilirubin 0.10 mg/dL (0.2-1.0) L 09/25/17 16:19 AST 18 Units/L (15-37) 09/25/17 16:19 ALT 25 Units/L (12-78) 09/25/17 16:19 Alkaline Phosphatase 67 Units/L (46-116) 09/25/17 16:19 Total Protein 8.0 g/dL (6.4-8.2) 09/25/17 16:19 Albumin 3.9 g/dL (3.4-5.0) 09/25/17 16:19 Globulin 4.1 g/dL (2.5-4.5) 09/25/17 16:19 Albumin/Globulin Ratio 1.0 Ratio (1.1-2.1) L 09/25/17 16:19 HCG, Qual Positive >10 mIU/mL 09/25/17 16:19 HCG, Quant 68819 mIU/mL (0-6) H 09/25/17 16:19 Specimen Type Clean catch urine 09/25/17 16:14 Urine Color Yellow (YELLOW) 09/25/17 16:14 Urine Appearance Clear (CLEAR) 09/25/17 16:14 Urine pH 7.0 (5.0 - 8.0) 09/25/17 16:14 Ur Specific [place] 1.010 (1.000-1.030) 09/25/17 16:14 Urine Protein Negative (NEGATIVE) 09/25/17 16:14 Urine Glucose (UA) 2+ (NEGATIVE) 09/25/17 16:14 Urine Ketones Negative (NEGATIVE) 09/25/17 16:14 Urine Occult Blood Negative (NEGATIVE) 09/25/17 16:14 Urine Nitrite Negative (NEGATIVE) 09/25/17 16:14 Urine Bilirubin Negative (NEGATIVE) 09/25/17 16:14 Urine Urobilinogen Normal (NORMAL) 09/25/17 16:14 Ur Leukocyte Esterase Negative (NEGATIVE) 09/25/17 16:14 - XRAY XRAY Interpreted by: Radiologist XRAY Findings: REPORT DISCUSS WITH PATIENT. - Diagnosis Discharge Problem: Abdominal pain affecting Qualifiers: Weeks of gestation: less than 8 weeks Qualified Code(s): Z3A.01 - Less than 8 weeks gestation of - Discharge Plan Disposition: HOME, SELF-CARE Condition: Stable Prescriptions: Ondansetron [Zofran ODT 8 mg] 8 mg PO Q8H PRN #12 tab PRN Reason: Nausea/Vomiting - Follow ups/Referrals Follow ups/Referrals: NFD,None [Primary Care Provider] - 3 days SOFY XIE [STAFF PHYSICIAN] - 3 days - Instructions Instructions: Abdominal Pain During , [id number], First Trimester of Additional Instructions: RETURN TO ED IF WORSE. FOLLOW UP WITH OB DOCTOR THIS WEEK.
[2017-09-25 16:23] LABS: BILIRUBIN,URINE NEGATIVE (NEGATIVE); BLOOD/HEMOGLOBIN,URINE NEGATIVE (NEGATIVE); GLUCOSE, URINE 2+ (NEGATIVE); KETONES,URINE NEGATIVE (NEGATIVE); LEUKOCYTE ESTERASE ,URINE NEGATIVE (NEGATIVE); NITRITES,URINE NEGATIVE (NEGATIVE); PROTEIN,URINE NEGATIVE (NEGATIVE); UROBILINOGEN,URINE NORMAL (NORMAL)
[2017-09-25 16:30] LABS: BASOPHILS # (AUTO) 0.1 X10^3/uL (0.0-0.1); BASOPHILS % (AUTO) 0.6 % (0.2-1.0); EOSINOPHILS # (AUTO) 0.1 x10^3/uL (0.0-0.2); EOSINOPHILS % (AUTO) 1.1 % (0.9-2.9); HEMATOCRIT 37.6 % (36.0-47.0); HEMOGLOBIN 12.9 g/dL (12.0-16.0); LYMPHOCYTES # (AUTO) 3.6 X10^3/uL (1.3-2.9); MEAN CORPUSCULAR HEMOGLOBIN 26.7 pg (27.0-34.0); MEAN CORPUSCULAR HGB CONC 34.2 g/dL (33.0-35.0); MONOCYTES # (AUTO) 1.1 x10^3/uL (0.3-0.8); MONOCYTES % (AUTO) 10.3 % (0.0-13.0); NEUTROPHILS # (AUTO) 5.7 x10^3/uL (2.2-4.8); PLATELET COUNT 359 X10^3/uL (150.0-450.0); RED BLOOD COUNT 4.82 X10^6/uL (3.5-5.4); RED CELL DISTRIBUTION WIDTH 14.5 % (11.6-16.5); WHITE BLOOD COUNT 10.5 X10^3/uL (3.6-10.0)
[2017-09-25 16:37] LABS: SERUM PREGNANCY TEST, QUAL POSITIVE >10 mIU/mL
[2017-09-25 16:57] LABS: ALANINE AMINOTRANSFERASE 25 Units/L (12-78); ALBUMIN 3.9 g/dL (3.4-5.0); ALKALINE PHOSPHATASE 67 Units/L (46-116); ASPARTATE AMINO TRANSFERASE 18 Units/L (15-37); BLOOD UREA NITROGEN 13 mg/dL (7-18); CALCIUM 9.3 mg/dL (8.5-10.1); CARBON DIOXIDE 30.1 mmol/L (21-32); CHLORIDE 100 mmol/L (98-107); CREATININE 0.86 mg/dL (0.55-1.02); SODIUM 137 mmol/L (136-145); eGFR BLACK RACES > 60 (>60); eGFR NON BLACK RACES > 60 (>60)
[2017-09-25 16:57] LABS: APPEARANCE,URINE CLEAR (CLEAR); COLOR,URINE YELLOW (YELLOW)
--- NOTE | 2017-09-25 18:45 | US ---
Indication: Pain Exam: Limited Ob ultrasound Technique: Transverse and longitudinal grayscale color Doppler images were obtained of the pelvis. Findings: The uterus measures 7.3 x 5.6 x 6 cm. There is a single gestational sac in the fundus with normal surrounding endometrial reaction. The sac size measures 1.8 cm. There is a yolk sac visualized . There is a single embryonic pole identified measuring 5 mm suggestive of a 6 week 2 day . The right ovary measures 4.2 x 1.8 x 2.6 cm. The left ovary measures 4.5 x 3 x 2 cm. There is anoop l color flow and Doppler signal seen to the ovaries. There is no obvious adnexal mass or free fluid. There appears to be cardiac motion on the real-time images but no duplex Doppler cardiac activi ty was documented. Impression: Single intrauterine with an estimated gestational age of 6 weeks 2 days. There was cardiac motion visualized on real-time images with no duplex Doppler documentation of the cardiac activity. R ecommend a short-term follow-up exam to document cardiac activity and assure viability. Normal ovaries with no adnexal mass or free fluid. Reported By:
[2017-09-25] MEDS ORDERED: ZOFRAN INJ 4 MG VIAL SC ONE (19:01)
[2017-09-25] MEDS ORDERED: ZOFRAN TAB 4 MG ONE (19:02)
[2017-09-25] MEDS ORDERED: ZOFRAN TAB 4 MG SL ONE (19:04)
== END 2017-09-25 19:07 | disposition home or self-care (01) ==
LOC: ER 15:56
DX: R10.31 Right lower quadrant pain (principal); Z3A.01 Less than 8 weeks gestation of pregnancy
CPT/HCPCS: 36415; 76801; 80053; 81003; 84702; 84703; 85025; 99282; 99284; S0181